=== PATIENT | female | born 1950 | race Caucasian/White ===

== ENCOUNTER 2018-04-30 11:10 | Emergency (ER) | payer MEDICARE, BC ==
[~2018-04-30] VITALS: Ht 165.1 cm; Wt 90.7 kg
[2018-04-30 11:33] VITALS: BP 130/71
--- NOTE | 2018-04-30 12:12 | Diagnostic Imaging Report ---
EXAM: XR Chest, 1 View CLINICAL HISTORY: COUGH TECHNIQUE: Frontal view of the chest. COMPARISON: No relevant prior studies available. FINDINGS: Lungs: No consolidation. Pleural space: Unremarkable. No pneumothorax. Heart: Unremarkable. No cardiomegaly. Mediastinum: Unremarkable. Bones/joints: No acute fracture. IMPRESSION: No consolidation.
[2018-04-30] MEDS ORDERED: PROMETHAZINE-C118 M1 ORAL (12:19)
[2018-04-30] MEDS ORDERED: AMOXICILLIN500 MG ORAL (12:19)
[2018-04-30 12:28] VITALS: BP 130/71
--- NOTE | 2018-04-30 13:59 | Emergency Room Report ---
History of Present Illness General Chief Complaint: Upper Respiratory Illness Source: Patient Present Illness HPI 67-year-old female presents ED complaining of cough. States that cough started partially 4 days ago while she was cleaning her attic. States was very [place]a and there may have been some mold. States cough is productive with yellowish phlegm. Denies fevers chills. Denies chest pain or shortness of breath. No other aggravating or relieving factors. Denies any other associated symptoms Allergies: Coded Allergies: POVIDONE-IODINE (Verified Allergy, Unknown, 04/30/18) Pt exhibits rashes with betadine SOAP (Verified Allergy, Unknown, 04/30/18) Pt exhibits rashes with betadine Patient History Past Medical History: none Past Surgical History: none Pertinent Family History: none Social History: Denies: smoking, alcohol use, drug use Now: No Immunizations: UTD Reviewed Nursing Documentation: PMH: Agreed; PSxH: Agreed Nursing Documentation-PMH Past Medical History: No Stated History Hx Neurological Problems: No - restless leg syndrome Review of Systems All Other Systems: negative except mentioned in HPI Physical Exam Vital Signs Date Time Temp Pulse Resp B/P (MAP) Pulse Ox O2 Delivery O2 Flow Rate FiO2 04/30/18 11:14 98.1 86 18 130/71 96 Room Air 98.1 Sp02 EP Interpretation: reviewed, normal General Appearance: no apparent distress, alert, GCS 15, non-toxic Head: normocephalic, atraumatic Eyes: bilateral eye normal inspection, bilateral eye PERRL ENT: hearing grossly normal, normal pharynx, no angioedema, normal voice Neck: full range of motion, supple/symm/no masses Respiratory: chest non-tender, lungs clear, normal breath sounds, speaking full sentences Cardiovascular #1: regular rate, rhythm, no edema Cardiovascular #2: 2+ carotid (R), 2+ carotid (L), 2+ radial (R), 2+ radial (L) , 2+ dorsalis pedis (R), 2+ dorsalis pedis (L) Gastrointestinal: normal bowel sounds, non tender, soft, non-distended, no guarding, no rebound Rectal: deferred Genitourinary: normal inspection, no CVA tenderness Musculoskeletal: back normal, gait/station normal, normal range of motion, non- tender Neurologic: alert, oriented x3, responsive, motor strength/tone normal, sensory intact, speech normal Psychiatric: judgement/insight normal, memory normal, mood/affect normal, no suicidal/homicidal ideation Reflexes: 3+ bicep (R), 3+ bicep (L), 3+ tricep (R), 3+ tricep (L), 3+ knee (R) , 3+ knee (L) Skin: normal color, no rash, warm/dry, well hydrated Lymphatic: no adenopathy Medical Decision Making Diagnostic Impression: Primary Impression: Atypical pneumonia ER Course Hospital Course 67-year-old female presents ED complaining of cough Differential diagnoses include: URI, pharyngitis, otitis media, asthma Clinical course Patient placed on stretcher. After initial history, physical exam reveals a female in no acute distress. Bilateral TM unremarkable. No pharyngeal erythema. No tonsillar exudates. No lymphadenopathy. lungs clear. abdomen soft. CXR shows no acute infiltrate Presentation consistent with atypical pneumonia. Given presentation, i will prescribe abx Diagnosis - atypical pneumonia Stable and discharged home with Rx amoxicillin, promethazine/codeine. Instructed to followup with PMD. Return to ED if symptoms recur or worsen Chest X-Ray Diagnostic Results Chest X-Ray Diagnostic Results : Chest X-Ray Ordered: Yes # of Views/Limited/Complete: 1 View Indication: Other - cough EP Interpretation: Yes Interpretation: no consolidation, no effusion, no pneumothorax, no acute cardiopulmonary disease Impression: No acute disease Electronically Signed by: Electronically signed by Donn Simmons MD Last Vital Signs Date Time Temp Pulse Resp B/P (MAP) Pulse Ox O2 Delivery O2 Flow Rate FiO2 04/30/18 12:28 98.1 86 18 130/71 96 Room Air 98.1 Status: improved Disposition: HOME, SELF-CARE Condition: Stable Scripts Codeine/Promethazine Hcl* (PROMETHAZINE-CODEINE SYRUP*) 118 Ml Syrup 5 ML ORAL Q6H PRN for For Cough, #118 ML 0 Refills Prov: Donn Simmons MD 04/30/18 Amoxicillin* (AMOXIL*) 500 Mg Capsule 500 MG ORAL THREE TIMES A DAY, #21 CAP Prov: Donn Simmons MD 04/30/18 Patient Instructions: Community-Acquired Pneumonia, Adult, [id number] Donn Simmons MD Apr 30, 2018 13:59
== END 2018-04-30 12:28 | disposition home or self-care (01) ==
LOC: EMR 11:51
DX: J18.9 Pneumonia, unspecified organism (principal)
CPT/HCPCS: 71045; 99284

== ENCOUNTER 2018-05-04 10:05 | Emergency (ER) | payer MEDICARE, BC ==
[~2018-05-04] VITALS: Ht 165.1 cm; Wt 90.7 kg
[~2018-05-04 10:05] MED LIST: AMOXICILLIN500 MG ORAL; PROMETHAZINE-C118 M1 ORAL
[2018-05-04] MEDS ORDERED: Levalbuterol Inh UD 1.25mg/0.5ml HHN ONE (10:45)
[2018-05-04] MEDS ORDERED: ZITHROMAX250 MG ORAL (11:25)
[2018-05-04] MEDS ORDERED: PREDNISONE20 MG ORAL (11:25)
[2018-05-04 11:54] VITALS: BP 125/70
--- NOTE | 2018-05-04 13:09 | Emergency Room Report ---
History of Present Illness General Chief Complaint: Upper Respiratory Illness Source: Patient, Medical Record Present Illness HPI Patient presents emergency department today complaining of cough congestion for about a week. Patient was seen in emergency department a few days ago and had a negative chest x-ray at that time. Patient was started on amoxicillin. Patient states her symptoms are not improving as moderate factor getting worse. She's complaining of sinus congestion cough and no phlegm and occasional wheezing. She states that her is ill and that she's traveling to [place] to [place] that she can't afford to be ill. She is requesting prednisone. He denies any nausea vomiting diarrhea chills. No other complaints are noted. Symptoms noted to be moderate. Patient states that she did use some albuterol last night but it did not help her symptoms.No other modifying factors. No other associated signs and symptoms. No other complaints were noted. Allergies: Coded Allergies: POVIDONE-IODINE (Verified Allergy, Unknown, 04/30/18) Pt exhibits rashes with betadine SOAP (Verified Allergy, Unknown, 04/30/18) Pt exhibits rashes with betadine Patient History Past Medical History: none Past Surgical History: none Pertinent Family History: none Social History: Denies: smoking, alcohol use, drug use Reviewed Nursing Documentation: PMH: Agreed; PSxH: Agreed Nursing Documentation-PMH Past Medical History: No History, Except For Hx Neurological Problems: No - restless leg syndrome Review of Systems All Other Systems: negative except mentioned in HPI Physical Exam Vital Signs Date Time Temp Pulse Resp B/P (MAP) Pulse Ox O2 Delivery O2 Flow Rate FiO2 05/04/18 10:16 98.3 85 18 125/70 95 Room Air 98.2 05/04/18 11:04 21 Sp02 EP Interpretation: reviewed, normal General Appearance: normal inspection, well appearing, no apparent distress, alert Head: atraumatic Eyes: bilateral eye normal inspection ENT: normal ENT inspection, hearing grossly normal, normal voice Neck: normal inspection, full range of motion, supple, no bony tend Respiratory: normal inspection, no respiratory distress, no retraction, accessory muscle use, wheezing, expiration Cardiovascular #1: regular rate, rhythm, no edema Gastrointestinal: normal inspection, normal bowel sounds, non tender, soft, no guarding, no hernia Genitourinary: no CVA tenderness Musculoskeletal: normal inspection, back normal, normal range of motion Neurologic: normal inspection, alert, responsive, speech normal Psychiatric: normal inspection, judgement/insight normal, mood/affect normal Skin: normal inspection, normal color, no rash Medical Decision Making Diagnostic Impression: Primary Impression: Cough ER Course Patient presents emergency department today complaining cough congestion. Differential considerations include pneumonia, bronchitis, asthma just name a few. Given patient's presentation I felt the patient likely had bronchitis other considerations however include pneumonia. Review of records show the patient just had a negative x-ray a few days ago therefore I felt that no repeat x-ray was indicated. Patient was advised to discontinue amoxicillin and instead was started on Zithromax given that amoxicillin does not appear to be improving. Patient was also advised he also normal inhaler started on prednisone per request and close patient follow-up.Patient is advised to follow up with primary doctor in 2-3 days and return the emergency room for any worsening symptoms and as needed. Last Vital Signs Date Time Temp Pulse Resp B/P (MAP) Pulse Ox O2 Delivery O2 Flow Rate FiO2 05/04/18 11:54 98.3 18 125/70 99 Room Air 21 98.2 05/04/18 11:09 85 Status: improved Disposition: HOME, SELF-CARE Condition: Stable Scripts Prednisone* (PREDNISONE*) 20 Mg Tablet 40 MG ORAL DAILY, #10 TAB Prov: Ramirez Torres MD 05/04/18 Azithromycin* (ZITHROMAX*) 250 Mg Tablet 250 MG ORAL DAILY, #6 TAB 0 Refills Take two tables once daily for 1 day, then one tablet once daily for 4 days. Prov: Ramirez Torres MD 05/04/18 Referrals: NOT CHOSEN IPA/,REFERRING Patient Instructions: Acute Bronchitis, [id number] Ramirez Torres MD May 04, 2018 13:09
== END 2018-05-04 11:55 | disposition home or self-care (01) ==
LOC: EMR 11:35
DX: R05 Cough (principal); G25.81 Restless legs syndrome
CPT/HCPCS: 94640; 94664; 99284; J7512; J7644